=== PATIENT | female | born 2000 | race African-American/Black ===

== ENCOUNTER 2022-09-27 17:24 | Emergency (ER) | payer MEDICAID ==
[~2022-09-27] VITALS: Ht 167.6 cm; Wt 77.5 kg
[2022-09-27] MEDS ORDERED: AMOX-494 MT (20:35)
[2022-09-27] MEDS ORDERED: AMOXICILLIN 500 MG CAPSULE PO ONE (20:45)
[2022-09-27 20:58] VITALS: BP 111/72
== END 2022-09-27 20:58 | disposition home or self-care (01) ==
LOC: ER 17:24
DX: J03.80 Acute tonsillitis due to other specified organisms (principal); B95.8 Unspecified staphylococcus as the cause of diseases classified elsewhere; Z20.822 Contact with and (suspected) exposure to COVID-19
CPT/HCPCS: 87070; 87426; 87430; 87804; 99283; C9803